=== PATIENT | female | born 1985 | race Two or more races ===

== ENCOUNTER 2017-10-11 11:10 | Inpatient (IN) | payer BC, OTHER ==
[~2017-10-11 11:10] MED LIST: CITRIC ACID/SODIUM CITRATE 30 ML UNIT-DOSE CUP PO ONE; ELECTROLYTE-148 SOLN 500 ML IV ONE
[2017-10-11] MEDS: ELECTROLYTE-148 SOLN 1,000 ML IV SCH (11:45)
[2017-10-11 11:59] VITALS: BMI 35.7
--- NOTE | 2017-10-11 12:36 | HP ---
Past Medical History - Primary Care Physician PCP:: Hoda Morales - Admission Chief Complaint: Prrevious section. multiparity. 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 Weeks Gestation by Dates: 39.3 ...EDC by Dates: 10/15/17 ...EDC by Sono: 10/16/17 - Past Surgical History Past Surgical History: Yes: Hx Myomectomy: No Hx Transabdominal Cerclage: No - Smoking History Smoking history: Never smoked Have you smoked in the past 12 months: No - Alcohol/Substance Use Hx Alcohol Use: No History of Substance Use: reports: None - Social History Usual Living Arrangement: Yes: With Spouse ADL: Independent History of Recent Travel: No Home Medications - Allergies Allergies/Adverse Reactions: Allergies Allergy/AdvReac Type Severity Reaction Status Date / Time No Known Allergies Allergy Verified 05/25/16 07:58 - Home Medications Home Medications: Ambulatory Orders Vit/Iron Fumarate/FA [ Tablet] 1 tablet PO DAILY 05/25/16 Ibuprofen [Motrin -] 600 mg PO QID PRN #28 tablet 10/11/17 Family Disease History - Family Disease History Family Disease History: Other: Father (obesity; a&w), Mother (killed age 39) Review of Systems - Review of Systems Constitutional: reports: No Symptoms Eyes: reports: No Symptoms HENT: reports: No Symptoms Neck: reports: No Symptoms Cardiovascular: reports: No Symptoms Respiratory: reports: No Symptoms Gastrointestinal: reports: No Symptoms Genitourinary: reports: No Symptoms Breasts: reports: No Symptoms Reported Musculoskeletal: reports: No Symptoms Integumentary: reports: No Symptoms Neurological: reports: No Symptoms Endocrine: reports: No Symptoms Hematology/Lymphatic: reports: No Symptoms Psychiatric: reports: No Symptoms Physical Exam - Maternity Vital Signs: Vital Signs Temperature 98.8 F 10/11/17 11:48 Pulse Rate 112 H 10/11/17 11:48 Respiratory Rate 20 10/11/17 11:48 Blood Pressure 132/80 10/11/17 11:48 O2 Sat by Pulse Oximetry (%) Constitutional: Yes: Well Nourished, No Distress Neck: Yes: WNL Cardiovascular: Yes: WNL, Regular Rate and Rhythm Lungs: Clear to auscultation Breast(s): Yes: WNL - Abdominal Exam/OB Fundal Height: 40 Number of Fetuses: Single Presentation: Vertex Contractions: No Monitor Mode: External Category: I Accelerations: Non-Uniform Decelerations: None - Vaginal Exam/OB Dilatation (cm): closed Amniotic Membrane Status: Intact Amniotic Fluid: Yes: Clear Presentation: Vertex/Position - Physical Exam Musculoskeletal: Yes: WNL Extremities: Yes: WNL Edema: No Integumentary: Yes: WNL Psychiatric: Yes: WNL, Alert, Oriented Hemorrhage Risk Assessment - Risk Factors Risk Score: 1 Risk Level: Medium Risk Problem List - Problems (1) Sterilization Code(s): Z30.2 - ENCOUNTER FOR STERILIZATION (2) Previous delivery, antepartum Code(s): O34.21 - MATERNAL CARE FOR SCAR FROM PREVIOUS * DO NOT USE * Assessment/Plan IUP at 39.3 week previous section voluntary sterilization Plan repeat CS bilateral tubal salpingectomy
[2017-10-11] MEDS ORDERED: ONDANSETRON 4 MG/2 ML VIAL IVPUSH PRN (14:06)
[2017-10-11] MEDS ORDERED: morphine SULFATE/Preservative Free 0.5 MG/ML (1cc Syringe) SPIN ONE (14:06)
--- NOTE | 2017-10-11 14:21 | OP ---
Operative Note - Note: Operative Date: 10/11/17 Pre-Operative Diagnosis: Previous Section. IUP at 39 week. Voluntarty Sterilization Operation: Repeat Section. Bilateral Salpingectomy Findings: Fallopian tubes normal ovaries Post-Operative Diagnosis: Same as Pre-op Surgeon: Hoda Morales Registered Dietitian: Dev Martinez Anesthesia: Spinal Estimated Blood Loss (mls): 600 Operative Report Dictated: Yes
[2017-10-11] MEDS ORDERED: IBUPROFEN 600 MG TABLET (FP) PO PRN (14:23)
[2017-10-11] MEDS ORDERED: METHYLERGONOVINE MALEATE 0.2 MG/1 ML AMP IM PRN (14:23)
[2017-10-11] MEDS ORDERED: IBUPROFEN 800 MG/8 ML IJ IVPB PRN (14:23)
--- NOTE | 2017-10-11 14:33 | SURG ---
Surgery Veneer Slicing Machine Operator Note Veneer Slicing Machine Operator: Dev Martinez PA-C Date of Service: 10/11/17 Diagnosis: Previous Section. IUP at 39 week. Voluntarty Sterilization Procedure: Repeat Section. Bilateral Salpingectomy I was present for the entirety of the operative procedure. For further detail, please refer to operative report. Visit type - Case Type Case Type: Scheduled Admission - New patient This patient is new to me today: Yes Date on this admission: 10/11/17
[2017-10-11 15:05] LABS: VENOUS PH 7.3 (7.32-7.42)
[2017-10-11] MEDS: OXYTOCIN 20 UNITS in 0.9% NS 20 UNIT/1,000 ML INFUS.BAG IV SCH (15:49)
[2017-10-12 09:08] LABS: BASOPHIL 0.3 % (0-2.0); EOSINOPHIL 0.7 % (0-4.5); MCH 31.9 pg (25.7-33.7); MCHC 33.5 g/dl (32.0-36.0); MEAN CELL VOLUME 95.3 fl (80-96); MEAN PLT VOLUME 6.6 fl (7.5-11.1); NEUTROPHILS 77.2 % (42.8-82.8); PLATELET COUNT 276 K/MM3 (134-434); RDW 12.6 % (11.6-15.6); WHITE BLOOD COUNT 12.1 K/mm3 (4.0-10.0)
--- NOTE | 2017-10-12 09:25 | PN ---
Post Progress Note - Subjective Subjective: 31 yo Para 3 status post seen and evaluated. She's sleeping comfortably in bed. Post Day: 1 Type of Delivery: Repeat C/S Vital Signs: Vital Signs Temperature 98.4 F 10/12/17 08:38 Pulse Rate 70 10/12/17 08:38 Respiratory Rate 20 10/12/17 08:38 Blood Pressure 96/58 10/12/17 08:38 O2 Sat by Pulse Oximetry (%) Breast Exam: Yes: Soft Incision: Yes: Dressing dry and intact Abdomen/GI: Yes: Abdomen soft Lochia: Yes: Rubra Lochia, amount: Small Extremities: Yes: Calves non-tender Perineum: Yes: Intact Activity: Other (She's lying in bed) - Labs Labs: CBC WBC 12.1 K/mm3 (4.0-10.0) H 10/12/17 08:53 RBC 3.96 M/mm3 (3.60-5.2) 10/12/17 08:53 Hgb 12.6 GM/dL (10.7-15.3) 10/12/17 08:53 Hct 37.8 % (32.4-45.2) 10/12/17 08:53 MCV 95.3 fl (80-96) 10/12/17 08:53 MCH 31.9 pg (25.7-33.7) 10/12/17 08:53 MCHC 33.5 g/dl (32.0-36.0) 10/12/17 08:53 RDW 12.6 % (11.6-15.6) 10/12/17 08:53 Plt Count 276 K/MM3 (134-434) 10/12/17 08:53 MPV 6.6 fl (7.5-11.1) L 10/12/17 08:53 Neutrophils % 77.2 % (42.8-82.8) D 10/12/17 08:53 Lymphocytes % 16.2 % (8-40) D 10/12/17 08:53 Monocytes % 5.6 % (3.8-10.2) 10/12/17 08:53 Eosinophils % 0.7 % (0-4.5) 10/12/17 08:53 Basophils % 0.3 % (0-2.0) 10/12/17 08:53 Problem List - Problems (1) Status post repeat low transverse section Code(s): Z98.891 - HISTORY OF UTERINE SCAR FROM PREVIOUS SURGERY Assessment/Plan Status post repeat Stable Analgesia as needed Continue routine post op care
[2017-10-12] MEDS: PRENATAL VITAMINS W/ FOLIC ACID TABLET (FP) PO SCH (10:23)
[2017-10-12] MEDS: ACETAMINOPHEN 325 MG TABLET (FP) PO PRN ×2 (10:23→15:47)
[2017-10-12] MEDS: SIMETHICONE 80 MG TAB.CHEW (FP) PO PRN ×2 (10:23→15:46)
--- NOTE | 2017-10-12 13:02 | DS ---
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 Vital Signs: Vital Signs Temperature 98.4 F 10/12/17 08:38 Pulse Rate 70 10/12/17 08:38 Respiratory Rate 20 10/12/17 12:00 Blood Pressure 96/58 10/12/17 08:38 O2 Sat by Pulse Oximetry (%) Constitutional: Yes: Well Nourished, No Distress Neck: Yes: WNL Cardiovascular: Yes: WNL Respiratory: Yes: WNL, Regular, CTA Bilaterally Gastrointestinal: Yes: WNL, Normal Bowel Sounds, Soft ....Post : Yes: Uterus firm, Uterus non-tender Breast(s): Yes: WNL Musculoskeletal: Yes: WNL Extremities: Yes: WNL Edema: No Wound/Incision: Yes: Clean/Dry, Well Approximated Neurological: Yes: WNL, Alert, Oriented Labs: CBC, BMP 10/12/17 08:53 Delivery - Delivery Section: Low Flap Transverse Type of Anesthesia: Spinal Episiotomy/Laceration: None EBL (cc): 600 Delivery, Single - Stages of Labor Date of Delivery: 10/11/17 Time of Delivery: 13:45 Time Placenta Delivered: 13:47 - Condition of Manager Practice/Night Shift Supervisor Present: Yes Name: Areli Moraes Infant Gender: Female Weight: 7 lb 5 oz Position: Left, OT Total Hours ROM (Hrs/Mins): 1min - 1 Minute Total Score: 9 5 Minutes Total Score: 9 - [place] Feeding Plan Initial Plan: Elected not to breastfeed exclusively throughout hospitalization Discharge Summary Reason For Visit: C SECTION Current Active Problems Status post repeat low transverse section (Acute) Sterilization (Acute) Procedures: Principal: repeat Section Other Procedures: Bilateral salpingectomy Condition: Good - Instructions Diet, Activity, Other Instructions: Regular diet No lifting, no driving x 4 weeks. F/U with MD in one week. Referrals: Hoda Morales MD [Staff Physician] - Disposition: HOME - Home Medications Comprehensive Discharge Medication List: Ambulatory Orders Vit/Iron Fumarate/FA [ Tablet] 1 tablet PO DAILY 05/25/16 Ibuprofen [Motrin -] 600 mg PO QID PRN #28 tablet 10/11/17
[2017-10-12] MEDS ORDERED: BISACODYL 10 MG SUPP.RECT RC PRN (14:23)
[2017-10-12] MEDS ORDERED: oxyCODONE HCL 5 MG TABLET PO PRN (14:23)
--- NOTE | 2017-10-12 15:18 | PN ---
Progress Note (short form) - Note Progress Note: Post op day#1.S/P C section with bilateral salpingectomy under spinal anesthesia with duramorph uneventful.Patient stable and has little pain for which she is on medication.No any anesthesia related problem.Patient DC from the anesthesia care.
[2017-10-12] MEDS: oxyCODONE HCL 5 MG TABLET PO PRN (15:46)
[2017-10-12] MEDS: IBUPROFEN 600 MG TABLET (FP) PO PRN (15:47)
[2017-10-13] MEDS: oxyCODONE HCL 5 MG TABLET PO PRN ×3 (00:01→15:33)
[2017-10-13] MEDS: IBUPROFEN 600 MG TABLET (FP) PO PRN ×3 (00:01→15:34)
[2017-10-13] MEDS: SIMETHICONE 80 MG TAB.CHEW (FP) PO PRN ×3 (00:02→15:33)
[2017-10-13] MEDS: ACETAMINOPHEN 325 MG TABLET (FP) PO PRN (02:10)
--- NOTE | 2017-10-13 05:59 | PN ---
Post Progress Note - Subjective Subjective: 31 yo status post repeat , seen and evaluated. She c/o incision pain. Post Day: 2 Type of Delivery: Repeat C/S Vital Signs: Vital Signs Temperature 98.8 F 10/12/17 22:00 Pulse Rate 75 10/12/17 22:00 Respiratory Rate 18 10/12/17 22:00 Blood Pressure 115/66 10/12/17 22:00 O2 Sat by Pulse Oximetry (%) Breast Exam: Yes: Soft Uterus: Yes: Fundus Firm Incision: Yes: Dressing dry and intact, Other (Steri strips in place) Lochia: Yes: Rubra Lochia, amount: Small Extremities: Yes: Calves non-tender Perineum: Yes: Intact Activity: Ambulating - Labs Labs: CBC WBC 12.1 K/mm3 (4.0-10.0) H 10/12/17 08:53 RBC 3.96 M/mm3 (3.60-5.2) 10/12/17 08:53 Hgb 12.6 GM/dL (10.7-15.3) 10/12/17 08:53 Hct 37.8 % (32.4-45.2) 10/12/17 08:53 MCV 95.3 fl (80-96) 10/12/17 08:53 MCH 31.9 pg (25.7-33.7) 10/12/17 08:53 MCHC 33.5 g/dl (32.0-36.0) 10/12/17 08:53 RDW 12.6 % (11.6-15.6) 10/12/17 08:53 Plt Count 276 K/MM3 (134-434) 10/12/17 08:53 MPV 6.6 fl (7.5-11.1) L 10/12/17 08:53 Neutrophils % 77.2 % (42.8-82.8) D 10/12/17 08:53 Lymphocytes % 16.2 % (8-40) D 10/12/17 08:53 Monocytes % 5.6 % (3.8-10.2) 10/12/17 08:53 Eosinophils % 0.7 % (0-4.5) 10/12/17 08:53 Basophils % 0.3 % (0-2.0) 10/12/17 08:53 Problem List - Problems (1) Status post repeat low transverse section Code(s): Z98.891 - HISTORY OF UTERINE SCAR FROM PREVIOUS SURGERY Assessment/Plan Status post repeat Stable Analgesia as needed Continue routine post op care
[2017-10-13] MEDS: PRENATAL VITAMINS W/ FOLIC ACID TABLET (FP) PO SCH (09:04)
[2017-10-13] MEDS: SENNOSIDES/DOCUSATE COMBO (SENNA PLUS) TABLET (UD) PO SCH ×3 (09:04→22:26)
[2017-10-13] MEDS ORDERED: FLU VACC QS2017-18 36MOS UP/PF 60 MCG/0.5 ML SYRINGE IM ONE (10:00)
[2017-10-13] MEDS ORDERED: DIPHTH,PERTUSS(ACELL),TET 0.5 ML DISP.SYRIN IM ONE (10:00)
--- NOTE | 2017-10-13 10:41 | OP ---
DATE OF OPERATION: 10/11/2017 PREOPERATIVE DIAGNOSES: Previous section, intrauterine at 39 weeks, and voluntary sterilization. OPERATION: Repeat section and bilateral salpingectomy. POSTOPERATIVE DIAGNOSES: Previous section, intrauterine at 39 weeks, and voluntary sterilization. Live female . Normal tubes and ovaries. SURGEON: Hoda Morales MD FIRE CLAIMS ADJUSTER: SAKSHI Farmer; unavailable. ANESTHESIA: Spinal. ANESTHESIOLOGIST: Dr. Squires DESCRIPTION OF PROCEDURE: Patient was taken to the operating room, placed in supine position, prepped and draped in the usual sterile fashion. A timeout was performed after spinal anesthesia had been given. The scalpel was then used to remove the patient's previous scar. Cautery was then used to go through the layers of abdominal wall to the level of the fascia. Fascia was cut in the midline. Cautery was then used to open the fascia in the following fashion. Evens was then used to bluntly and sharply dissect the rectus muscle off the fascia. Muscles split in the midline. Peritoneal cavity was then entered and carried upward and downward. Bladder retractor was then placed. Vesicouterine reflection was then entered. Bladder was bluntly dissected out of the operative field. Scalpel was then used to make a low transverse uterine incision. Incision was carried upwards using bandage scissors. A live female infant was delivered in OT position. Nose and mouth suction performed. Shoulders were delivered without difficulty. Cord was clamped and cut. Cord blood obtained. Cord pH was obtained. Placenta was manually extracted from the uterus. The infant was handed to the hardboard coating machine operator. Uterus exteriorized and cleaned with clean laparotomy pads after the placenta was manually extracted from the uterus. Incision was then closed using 0 Biosyn suture, first layer of continuous and locking, second layer imbricating the first layer. Hemostasis was achieved using figure-of-8 sutures. Tubes and ovaries were noted to be normal. LigaSure was then used to clamp and cut the right fallopian tube away from the uterus. Other fallopian tube was removed with ectopic . Specimen was submitted to Pathology. Hemostasis was achieved. Uterus interiorized. Abdominal cavity cleaned with clean laparotomy pads. Peritoneum closed using 0 Biosyn suture. Muscles approximated in the midline using 0 Biosyn suture. Fascia was then closed using 0 Vicryl suture in 2 parts continuous. Subcutaneous was then closed using interrupted using 0 Biosyn suture, and the skin was then closed using 4-0 Biosyn in subcuticular fashion. Wound was washed and dressed. The patient tolerated the procedure well. ESTIMATED BLOOD LOSS: 600 mL. An abdominal sweep was done. Again, tubes and ovaries were noted to be normal. Susanne [id number] MTDD
[2017-10-13] MEDS: DOCUSATE SODIUM 100 MG CAPSULE (FP) PO SCH ×2 (15:33→22:30)
[2017-10-13 22:42] VITALS: TEMP 97.9
[2017-10-14] MEDS: IBUPROFEN 600 MG TABLET (FP) PO PRN ×2 (00:37→09:20)
[2017-10-14] MEDS: SIMETHICONE 80 MG TAB.CHEW (FP) PO PRN (00:37)
[2017-10-14] MEDS: oxyCODONE HCL 5 MG TABLET PO PRN ×2 (00:38→09:22)
[2017-10-14] MEDS: DOCUSATE SODIUM 100 MG CAPSULE (FP) PO SCH (05:18)
[2017-10-14 07:38] LABS: BASOPHIL 0.6 % (0-2.0); EOSINOPHIL 4.1 % (0-4.5); MCH 32.5 pg (25.7-33.7); MEAN CELL VOLUME 95.7 fl (80-96); MEAN PLT VOLUME 6.7 fl (7.5-11.1); PLATELET COUNT 296 K/MM3 (134-434); RDW 13.2 % (11.6-15.6); WHITE BLOOD COUNT 7.5 K/mm3 (4.0-10.0)
[2017-10-14] MEDS: ELECTROLYTE-148 SOLN 1,000 ML IV SCH (09:18)
[2017-10-14] MEDS: OXYTOCIN 20 UNITS in 0.9% NS 20 UNIT/1,000 ML INFUS.BAG IV SCH (09:19)
[2017-10-14] MEDS: SENNOSIDES/DOCUSATE COMBO (SENNA PLUS) TABLET (UD) PO SCH (09:22)
[2017-10-14] MEDS: PRENATAL VITAMINS W/ FOLIC ACID TABLET (FP) PO SCH (09:22)
[2017-10-14 09:35] VITALS: BP 112/75; PULSE 79
--- NOTE | 2017-10-16 15:47 | PATH ---
Surgical Pathology Report Patient Name: [facility]. Rec. #: [id number] /Age/Gender: 1985 (Age: 31) / F Account: [id number] Location: [facility] OBS/VENEER MEASURER Taken: 10/11/2017 Received: 10/14/2017 Reported: 10/16/2017 Physicians: Hoda Morales M.D. Specimen(s) Received A: PLACENTA B: LEFT PARTIAL FALLOPIAN TUBE C: RIGHT PARTIAL FALLOPIAN TUBE Clinical History , 39.2 gestational weeks Final Diagnosis A. PLACENTA, SECTION: 539 g THIRD TRIMESTER PLACENTA WITH TRIVASCULAR UMBILICAL CORD AND UNREMARKABLE PLACENTAL MEMBRANES. B. FALLOPIAN TUBE, LEFT, PARTIAL EXCISION: FULL LUMINAL PORTION OF UNREMARKABLE FALLOPIAN TUBE. C. FALLOPIAN TUBE, RIGHT, PARTIAL EXCISION: FULL LUMINAL PORTION OF FALLOPIAN TUBE WITH MARKED VASCULAR CONGESTION AND PARATUBAL CYST. Electronically Signed Margot Britton M.D. Gross Description A. The specimen is received fresh labeled placenta and is a 539 gram, 21.0 x 16.5 x 1.4 cm. placenta with attached membranes and umbilical cord. The attached membranes are hernandez, translucent with focal opacities and insert marginally. The umbilical cord measures 11 cm. in length and averages 1.3 cm. in diameter. The cord inserts eccentrically, 6 cm. to the nearest margin. No true knots or strictures are identified. Cut surface of the umbilical cord reveals 3 vessels. The surface is chandra-blue with minimal fibrin deposition and appropriate caliber vessels. The maternal surface is red-brown with focal defects. Sectioning reveals red-brown, spongy parenchyma. No lesions are identified. Vascular Sonographer sections are submitted in three cassettes as follows: 1- membrane rolls and umbilical cord; 2-3- full thickness sections of placenta. B. Received in formalin labeled "left fallopian tube," is a 7 cm in length fimbriated fallopian tube. The outer surface is brown carrillo and smooth. Sectioning reveals an unremarkable lumen. Vascular Sonographer sections are submitted in 2 cassettes as follows: 1-fimbria; 2-cross sections of fallopian tube. C. Received in formalin labeled "right fallopian tube," is a 6.5 cm in length fimbriated fallopian tube. The outer surface is brown carrillo and smooth with a 0.5 cm in greatest dimension paratubal cyst attached to the fimbria. Sectioning reveals an unremarkable lumen. Vascular Sonographer sections are submitted in 2 cassettes as follows: 1-fimbria with paratubal cyst; 2-cross sections of fallopian tube. 10/15/201710/15/2017
== END 2017-10-14 12:30 | disposition home or self-care (01) | DRG 766 ==
LOC: JLDR 11:10 → J3W 16:31
PROVIDERS: ADMIT Obstetrics & Gynecology; ATTEND Obstetrics & Gynecology
PROC: 10D00Z1 Extraction of Products of Conception, Low, Open Approach (ICD-10-PCS; principal; 2017-10-11)
PROC: 0UT70ZZ Resection of Bilateral Fallopian Tubes, Open Approach (ICD-10-PCS; 2017-10-11)
DX: O34.211 Maternal care for low transverse scar from previous cesarean delivery (principal); Z3A.39 39 weeks gestation of pregnancy; Z37.0 Single live birth; Z30.2 Encounter for sterilization
CPT/HCPCS: 36415; 71010-TC; 82803; 85025; 88302-TC; 88307-TC; 90686; 90715; G0008

== ENCOUNTER 2018-04-11 18:15 | Emergency (ER) | payer BC, OTHER ==
--- NOTE | 2018-04-11 18:28 | PDOC ---
Rapid Medical Evaluation Time Seen by Provider: 04/11/18 18:24 Medical Evaluation: Allergies Allergy/AdvReac Type Severity Reaction Status Date / Time No Known Allergies Allergy Verified 05/25/16 07:58 I have performed a brief in-person evaluation of this patient. The patient presents with a chief complaint of: tightness in chest x 2 weeks with deep inspiration, cough x [address] Nunes on Saturday and given allergy medications but they don't seem to be helping ( Pertinent physical exam findings: persistent dry cough. lungs CTAB. I have ordered the following: hcg, duoneb The patient will proceed to the ED for further evaluation. Discharge Disposition - Diagnosis Cough - Referrals Referrals: Ha Nunes MD [Primary Care Provider] - - Patient Instructions - Post Discharge Activity
[2018-04-11 18:31] VITALS: BMI 27.6
[2018-04-11] MEDS ORDERED: ALBUTEROL SO4 2.5/IPRATROPIUM 0.5 INH SOL 3 ML VIAL.NEB. NEB ONE ×2 (19:11→21:15)
[2018-04-11] MEDS: ALBUTEROL SO4 2.5/IPRATROPIUM 0.5 INH SOL 3 ML VIAL.NEB. NEB ONE ×2 (19:17→21:15)
[2018-04-11] MEDS ORDERED: DEXAMETHASONE LIQUID 0.5 MG/5 ML 240 ML BULK BOTTLE PO ONE (19:49)
[2018-04-11] MEDS ORDERED: DEXAMETHASONE SOD PHOSPHATE 10 MG/1 ML VIAL ONE (21:16)
--- NOTE | 2018-04-11 21:17 | PDOC ---
History of Present Illness - General History Source: Patient Exam Limitations: No Limitations - History of Present Illness Initial Comments: 04/11/18 22:57 Patient is a 32 year old female with no significant past medical history of who presents to the ED with complaints of cough that she states began x2 weeks ago. Patient reports experiencing gradual onset of coughing that she states increased in intensity over time and has shown no sign of relief. She reports cough is a dry cough, with clear sputum with associated with chest pain that increases in intensity secondary to cough. She reports chest pain is feels like a tightness in the middle of her chest that does not radiate, but does feel slightly worse during night time hours and when outside. She reports experiencing associated symptoms of headache and intermittent chills. Patient reports seeing PCP x4 days ago and was prescribed singulair for cough but state she has been non compliant with medication stating it began to make her feel worse. Denies nausea, vomiting. Denies fevers. Denies contact with sick individuals, out of state travelling. Denies dysuria, hematuria, constipation, diarrhea. Denies any other symptoms. Allergies: None Social history: Lives with and 2 children. No smoking. No alcohol. Surgical history: x3, Endometriosis. PMD: Dr. Nunes <Dalton Villeda - Last Filed: 04/11/18 22:57> <Chrissy Martinez - Last Filed: 04/12/18 06:47> - General Chief Complaint: Shortness of Breath Stated Complaint: SHORTNESS OF BREATH,PAIN Time Seen by Provider: 04/11/18 18:24 Past History <Dalton Villeda - Last Filed: 04/11/18 22:57> - Past Medical History Asthma: No Cancer: No Cardiac Disorders: No Diabetes: No Disorders: (PYELONEPHRITIS) HTN: No Seizures: No Thyroid Disease: No - Reproductive History (#): 1 Para: 1 - Immunization History Immunization Up to Date: No - Suicide/Smoking/Psychosocial Hx Smoking History: Never smoked Have you smoked in the past 12 months: No Hx Alcohol Use: No Drug/Substance Use Hx: No Substance Use Type: None Hx Substance Use Treatment: No <Chrissy Martinez - Last Filed: 04/12/18 06:47> - Past Medical History Allergies/Adverse Reactions: Allergies Allergy/AdvReac Type Severity Reaction Status Date / Time No Known Allergies Allergy Verified 04/11/18 18:28 Home Medications: Ambulatory Orders Vit/Iron Fum/Folic AC [ Tablet] 1 tablet PO DAILY 05/25/16 Ibuprofen [Motrin -] 600 mg PO QID PRN #28 tablet 10/11/17 Oxycodone HCl/Acetaminophen [Percocet 5-325 mg Tablet -] 1 tab PO Q4H #20 tablet MDD 6 10/14/17 Benzonatate [Tessalon Pearls -] 100 mg PO TID #21 capsule 04/11/18 Review of Systems - Review of Systems Able to Perform ROS?: Yes Comments:: 04/11/18 22:57 GENERAL/CONSTITUTIONAL: No fever or chills. No weakness. HEAD, EYES, EARS, NOSE AND THROAT: No change in vision. No ear pain or discharge. No sore throat. CARDIOVASCULAR: +Chest tightness No shortness of breath. RESPIRATORY: +cough No wheezing, or hemoptysis. GASTROINTESTINAL: No nausea, vomiting, diarrhea or constipation. GENITOURINARY: No dysuria, frequency, or change in urination. MUSCULOSKELETAL: No joint or muscle swelling or pain. No neck or back pain. SKIN: No rash NEUROLOGIC: No headache, vertigo, loss of consciousness, or change in strength/ sensation. ENDOCRINE: No increased thirst. No abnormal weight change. HEMATOLOGIC/LYMPHATIC: No anemia, easy bleeding, or history of blood clots. ALLERGIC/IMMUNOLOGIC: No hives or skin allergy. <Dalton Villeda - Last Filed: 04/11/18 22:57> *Physical Exam - Vital Signs Last Vital Signs Temp Pulse Resp BP Pulse Ox 98.1 F 80 20 115/70 98 04/11/18 21:24 04/11/18 21:24 04/11/18 21:24 04/11/18 21:24 04/11/18 21:24 - Physical Exam Comments: 04/11/18 22:58 GENERAL: Awake, alert, and fully oriented, in no acute distress HEAD: No signs of trauma EYES: PERRLA, EOMI, sclera anicteric, conjunctiva clear ENT: Auricles normal inspection, hearing grossly normal, nares patent, oropharynx clear without exudates. Moist mucosa NECK: Normal ROM, supple, no lymphadenopathy, JVD, or masses LUNGS: Breath sounds equal, clear to auscultation bilaterally. No wheezes, and no crackles HEART: Regular rate and rhythm, normal S1 and S2, no murmurs, rubs or gallops ABDOMEN: Soft, nontender, normoactive bowel sounds. No guarding, no rebound. No masses EXTREMITIES: Normal range of motion, no edema. No clubbing or cyanosis. No cords, erythema, or tenderness NEUROLOGICAL: Cranial nerves II through XII grossly intact. Normal speech, normal gait SKIN: Warm, Dry, normal turgor, no rashes or lesions noted. <Dalton Villeda - Last Filed: 04/11/18 22:57> - Vital Signs Last Vital Signs Temp Pulse Resp BP Pulse Ox 98.3 F 86 20 113/74 97 04/11/18 18:28 04/11/18 18:28 04/11/18 18:28 04/11/18 18:28 04/11/18 18:28 <Chrissy Martinez - Last Filed: 04/12/18 06:47> ED Treatment Course - ADDITIONAL ORDERS Additional order review: Laboratory Results 04/11/18 20:40 Urine HCG, Qual Negative - Medications Given in the ED: ED Medications Discontinued Medications Generic Name Dose Route Start Last Admin Trade Name Freq PRN Reason Stop Dose Admin Albuterol/Ipratropium 1 amp 04/11/18 18:27 04/11/18 21:15 Duoneb - NEB 04/11/18 18:28 1 amp ONCE ONE Administration Albuterol/Ipratropium 1 amp 04/11/18 21:15 04/11/18 21:22 Duoneb - NEB 04/11/18 21:16 1 amp ONCE ONE Administration Dexamethasone 10 mg 04/11/18 19:49 04/11/18 20:41 Decadron Liquid - PO 04/11/18 19:50 10 mg ONCE ONE Administration <Dalton Villeda - Last Filed: 04/11/18 22:57> - ADDITIONAL ORDERS Additional order review: Laboratory Results 04/11/18 20:40 Urine HCG, Qual Negative - RADIOLOGY Radiology Studies Ordered: Category Date Time Status CHEST PA & LAT [RAD] Stat Radiology 04/11/18 19:30 Completed - Medications Given in the ED: ED Medications Discontinued Medications Generic Name Dose Route Start Last Admin Trade Name Freq PRN Reason Stop Dose Admin Albuterol/Ipratropium 1 amp 04/11/18 18:27 04/11/18 21:15 Duoneb - NEB 04/11/18 18:28 1 amp ONCE ONE Administration Dexamethasone 10 mg 04/11/18 19:49 04/11/18 20:41 Decadron Liquid - PO 04/11/18 19:50 10 mg ONCE ONE Administration <Chrissy Martinez - Last Filed: 04/12/18 06:47> Medical Decision Making - Medical Decision Making 04/12/18 06:45 Pt comes with a chronic cough despite completeing a course of abx. She is afebrile and she appears well. She is upset that the cough keeps her from sleeping. She is understress as she has 2 kids a toddler and a , and she needs to sleep. Pt is at her wits end. We treatred with steroids and duonebs and home with tessalon perles. Pt is stable for discharge. She notes that her singulair is not helping her cough, so she stopped it. <Chrissy Martinez - Last Filed: 04/12/18 06:47> *DC/Admit/Observation/Transfer - Attestations Scribe Attestion: 04/11/18 22:59 Documentation prepared by Dalton Villeda, acting as medical record transcriber for Chrissy Martinez MD/DO. <Dalton Villeda - Last Filed: 04/11/18 22:57> - Discharge Dispostion Decision to Admit order: No <Chrissy Martinez - Last Filed: 04/12/18 06:47> Diagnosis at time of Disposition: Cough, Viral URI with cough - Discharge Dispostion Disposition: HOME Condition at time of disposition: Stable - Prescriptions Prescriptions: Benzonatate [Tessalon Pearls -] 100 mg PO TID #21 capsule - Referrals Referrals: Ha Nunes MD [Primary Care Provider] - - Patient Instructions Printed Discharge Instructions: Common Cold, Cough - Post Discharge Activity
[2018-04-11 21:25] VITALS: BP 115/70; PULSE 80; TEMP 98.1
== END 2018-04-11 21:34 | disposition home or self-care (01) ==
LOC: JER 18:15
PROC: 3E0F7GC Introduction of Other Therapeutic Substance into Respiratory Tract, Via Natural or Artificial Opening (ICD-10-PCS; principal; 2018-04-11)
PROC: 3E0F7GC Introduction of Other Therapeutic Substance into Respiratory Tract, Via Natural or Artificial Opening (ICD-10-PCS; 2018-04-11)
DX: J06.9 Acute upper respiratory infection, unspecified (principal); B97.89 Other viral agents as the cause of diseases classified elsewhere
CPT/HCPCS: 71046-TC-FY; 84703; 99282-25; J7620

== ENCOUNTER 2022-05-20 18:06 | Emergency (ER) | payer BC, OTHER ==
[2022-05-20 18:17] VITALS: BP 108/63; PULSE 69; TEMP 98; BMI 26.1
[2022-05-20] MEDS ORDERED: ACETAMINOPHEN 325 MG TABLET (FP) PO ONE (19:57)
[2022-05-20] MEDS ORDERED: IBUPROFEN 400 MG TABLET (FP) PO ONE ×2 (20:00→20:03)
[2022-05-20] MEDS ORDERED: ACETAMINOPHEN 325 MG TABLET (FP) ONE (20:02)
[2022-05-20] MEDS ORDERED: CEPHALEXIN MONOHYDRATE 500 MG CAPSULE (UD) PO ONE (20:20)
[2022-05-20] MEDS ORDERED: CEPHALEXIN MONOHYDRATE 500 MG CAPSULE (UD) ONE (20:51)
== END 2022-05-20 21:01 | disposition home or self-care (01) ==
LOC: JER 18:06
DX: S99.921A Unspecified injury of right foot, initial encounter (principal); W22.09XA Striking against other stationary object, initial encounter
CPT/HCPCS: 73630-TC-RT-FY; 99283-25